=== PATIENT | female | born 1970 | race Caucasian/White ===

== ENCOUNTER → 2020-12-01 17:28 | Outpatient (CLI) | payer OTHER, SELFPAY ==
--- NOTE | ~2020-12-01 | MM_ITS ---
EXAMINATION: MM screening dada BI w terra HISTORY: Screening TECHNIQUE: Craniocaudal and mediolateral oblique 3-D tomosynthesis images were obtained and synthetic 2-D images were generated. CAD analysis was submitted and interpreted. COMPARISON: Comparison to multiple prior studies sequentially, with oldest reviewed study dated 09/2013. BREAST PARENCHYMAL COMPOSITION: The breasts are almost entirely fatty. FINDINGS: There is no evidence of suspicious mass, calcification, or architectural distortion to sugg est malignancy in either breast. There has been no suspicious interval change. IMPRESSION: 1. No mammographic evidence of malignancy. 2. Recommend routine screening mammography in one year. BI-RADS Category 1: Negative Reviewed, dictated and finalized at location A.
== END ==
PROVIDERS: PCP Family Medicine; Visit Provider Physician Assistant
DX: Z12.31 Encounter for screening mammogram for malignant neoplasm of breast (principal)
CPT/HCPCS: 77063; 77067

== ENCOUNTER → 2021-02-24 03:00 | Outpatient (CLI) | payer OTHER, SELFPAY ==
[2021-02-24 18:35] LABS: SARS-CoV-2 RNA PCR Positive
== END ==
PROVIDERS: PCP Family Medicine; Visit Provider Family Medicine
DX: U07.1 COVID-19 (principal)
CPT/HCPCS: C9803; U0003; U0005

== ENCOUNTER 2021-02-28 12:51 | Outpatient (RCR) | payer OTHER, SELFPAY ==
[2021-02-28] MEDS: FAMOTIDINE 20 MG TABLET PO (14:05)
[2021-02-28] MEDS: diphenhydrAMINE HCl CAP 25 MG CAPSULE PO (14:05)
[2021-02-28] MEDS: ACETAMINOPHEN 325 MG TABLET 650 MG PO (14:05)
[2021-02-28 14:22] VITALS: BP 130/64; PULSE 90; RESP 18; TEMP 37.2; O2SAT 98
--- NOTE | 2021-02-28 14:53 | PC.NURSE ---
Patient received COVID vaccines: [employer] 07/26/20, 08/17/20
[2021-02-28 15:46] VITALS: BP 122/59; PULSE 72; RESP 18; TEMP 37.1; O2SAT 99
--- NOTE | 2021-03-01 10:12 | PC.NURSE ---
Called patient to follow-up regarding COVID antibody infusion yesterday. Patient states they are feeling well today with the exception of some fatigue. Denies any side effects at this time.
== END 2021-02-28 16:24 | disposition home or self-care (01) ==
LOC: AMCINF 12:51
PROVIDERS: PCP Family Medicine; Referring Provider Family Medicine; Visit Provider Internal Medicine Hematology & Oncology
DX: Z23 Encounter for immunization (principal); U07.1 COVID-19
CPT/HCPCS: A9270; J7050; M0243; Q0244

== ENCOUNTER 2022-07-16 00:19 | Day surgery (SDC) | payer OTHER, SELFPAY ==
[2022-07-02 14:06] VITALS: BMI 43.7
[2022-07-16 07:57] VITALS: BP 116/54; PULSE 62; RESP 18; TEMP 36.2; O2SAT 100
[2022-07-16] MEDS: LACTATED RINGERS 1,000 ML 150 ML IV CONT (08:14)
--- NOTE | 2022-07-16 08:55 | P.PNAN_ITS ---
Anes - Initial Pre Proc Eval Procedure: Operation Date: 07/16/22 09:00 Proposed Procedures p Screening Colonoscopy - Slick Warren MD Date/Time: 07/16/22 08:55 Surgeon: Slick Warren MD Pre Op Diagnosis: neoplasm screening Patient Data Age: 51 Gender: F Height: 1.63 m Weight: 113.7 kg Last Vital Signs Temp 36.2 C L 07/16/22 07:57 Pulse 62 07/16/22 07:57 Resp 18 07/16/22 07:57 BP 116/54 L 07/16/22 07:57 Pulse Ox 100 07/16/22 07:57 O2 Del Method Room Air 07/16/22 07:57 Allergies Allergy/AdvReac Type Severity Reaction Status Date / Time No Known Allergies Allergy Mild Verified 07/16/22 07:56 Home Medications Medication Instructions Recorded Confirmed Type escitalopram oxalate 10 mg tablet 10 mg PO DAILY 02/28/21 07/02/22 History levothyroxine 50 mcg tablet 50 mcg PO DAILY 02/28/21 07/02/22 History propranolol 80 mg tablet 80 mg PO BID 02/28/21 07/02/22 History phentermine 37.5 mg capsule 37.5 mg PO DAILY #30 caps 06/20/22 07/02/22 Rx desogestrel 0.15 mg-ethinyl 0.15 tablet PO DAILY 07/02/22 07/02/22 History estradiol 0.03 mg tablet (Apri) Laboratory Tests 07/16/22 08:29 Beta HCG, Quant Pending Patient hx anesthesia problems: none Family hx anesthesia problems: none Results Review: All pre-operative results and documents have been reviewed as part of the pre- operative evaluation. [facility] Past Medical History Medical History (Updated 07/16/22 @ 08:57 by Dipesh Conrad MD) Hypothyroidism Morbid obesity with BMI of 40.0-44.9, adult ANA on CPAP Family History Family History (Updated 07/02/22 @ 14:30 by Ray Browning RN) Grandparent Colon cancer Social History Social History Smoking status: Never smoker Alcohol intake: current Drinks per week: 1 Substance use: never Substance use type: does not use Living arrangements: with family Spiritual care concerns: No Anes - Eval Final PreProcedure Day of Procedure 07/16/22 08:55 Patient weight: obese Heart: regular rate and rhythm Lungs: clear to auscultation and normal air movement Airway: Mallampati scale class II Neurological: alert and oriented Last oral intake: >/= 8 hours ASA classification: III Emergent: no Anesthetic plan: proceed Anesthesia type and monitoring: general GIVS Results Review: All pre-operative results and documents have been reviewed as part of the pre- operative evaluation. Informed Consent: The patient's anesthetic plan and its attendant risks and benefits were discussed with the patient/family/POA. Questions were solicited and answers provided to the satisfaction of the patient/family/POA.
[2022-07-16 09:01] LABS: Beta HCG Quantitative < 2.39 mIU/ML
--- NOTE | 2022-07-16 09:35 | PM.HPGS ---
History of Present Illness History of Present Illness Consent: Risks, benefits, and alternatives have been discussed and questions answered. Patient agrees to proceed with procedure. Chief complaint: neoplasm screening Narrative: Karen Hernandez is a 51 year old female here for first screening colonoscopy Review of Systems Constitutional: Constitutional: Denies headache(s) and Denies weakness Eyes: Eyes: Denies blurry vision ENT: Reports Normal hearing present, Denies headache(s) and Denies neck pain Cardiovascular: Cardiovascular: Denies chest pain and Denies dyspnea Respiratory: Respiratory: Denies dyspnea Gastrointestinal: Gastrointestinal: Reports no additional gastrointestinal complaints Genitourinary: Genitourinary: Denies dysuria Musculoskeletal: Musculoskeletal: Denies neck pain Integumentary/Breasts: Skin/Breast: Denies dry skin Neurologic: Reports Normal hearing present, Denies headache(s) and Denies weakness Psychiatric: Psychiatric: Denies anxiety Endocrine: Endocrine: Denies change in body appearance Hematologic/Lymphatic: Hematologic/Lymphatic: Denies easy bleeding Allergic/Immunologic: Allergic/Immunologic: Denies urticaria PMF Past Medical History Medical History (Updated 07/16/22 @ 09:35 by Slick Warren MD) Colon cancer screening Hypothyroidism Morbid obesity with BMI of 40.0-44.9, adult ANA on CPAP Family History Family History (Updated 07/02/22 @ 14:30 by Ray Browning RN) Grandparent Colon cancer Social History Social History Smoking status: Never smoker Alcohol intake: current Drinks per week: 1 Substance use: never Substance use type: does not use Living arrangements: with family Spiritual care concerns: No Meds Home Medications and Allergies Home Medications Medication Instructions Recorded Confirmed Type escitalopram oxalate 10 mg tablet 10 mg PO DAILY 02/28/21 07/02/22 History levothyroxine 50 mcg tablet 50 mcg PO DAILY 02/28/21 07/02/22 History propranolol 80 mg tablet 80 mg PO BID 02/28/21 07/02/22 History phentermine 37.5 mg capsule 37.5 mg PO DAILY #30 caps 06/20/22 07/02/22 Rx desogestrel 0.15 mg-ethinyl 0.15 tablet PO DAILY 07/02/22 07/02/22 History estradiol 0.03 mg tablet (Apri) Allergies Allergy/AdvReac Type Severity Reaction Status Date / Time No Known Allergies Allergy Mild Verified 07/16/22 07:56 Vital Signs Vital Signs - 24 hr 07/16/22 07:57 Temperature 97.1 F L Pulse Rate 62 Respiratory Rate 18 Blood Pressure 116/54 L Pulse Oximetry 100 Oxygen Delivery Room Air Exam Const: General: comfortable and no acute distress HENMT: Face/Nose/Sinus: Normal nares present Eyes: General: appearance normal, both eyes and all related structures Neck: Neck: no JVD Resp: Auscultation: clear to auscultation bilaterally Cardio: Rate: regular rate Rhythm: regular rhythm GI: Inspection: non-distended GI Palp: Yes Soft to palpation Skin: General skin exam: normal color Neuro: General: gait normal Speech: normal speech Extrem: General: normal to inspection Psych: Mental Status: mental status grossly normal Assessment and Plan Assessment and plan (1) Colon cancer screening: Code(s): Z12.11 - Encounter for screening for malignant neoplasm of colon Status: Acute Assessment and Plan: colonoscopy
[2022-07-16 09:56] VITALS: BP 91/56; PULSE 64; RESP 21; O2SAT 97
[2022-07-16 10:06] VITALS: BP 110/67; PULSE 65; RESP 16; O2SAT 98
[2022-07-16 10:16] VITALS: BP 115/61; PULSE 58; RESP 17; O2SAT 98
== END 2022-07-16 10:29 | disposition home or self-care (01) ==
PROVIDERS: Anesthesiology; PCP Family Medicine; Visit Provider Internal Medicine Gastroenterology
PROC: 0DJD8ZZ Inspection of Lower Intestinal Tract, Via Natural or Artificial Opening Endoscopic (ICD-10-PCS; CPT 45378; principal; 2022-07-16 09:00)
DX: Z12.11 Encounter for screening for malignant neoplasm of colon (principal); K57.30 Diverticulosis of large intestine without perforation or abscess without bleeding; K64.8 Other hemorrhoids; E03.9 Hypothyroidism, unspecified; G47.33 Obstructive sleep apnea (adult) (pediatric); E66.01 Morbid (severe) obesity due to excess calories; Z68.41 Body mass index [BMI] 40.0-44.9, adult
CPT/HCPCS: 45378; 36415; 84702; J2704; J7120

== ENCOUNTER → 2022-09-24 16:28 | Outpatient (CLI) | payer OTHER, SELFPAY ==
--- NOTE | ~2022-09-24 | MM_ITS ---
EXAMINATION: MM screening dada BI w terra HISTORY: Screening mammogram TECHNIQUE: Craniocaudal and mediolateral oblique 3-D tomosynthesis images were obtained and synthetic 2-D images were generated. CAD analysis was submitted and interpreted. COMPARISON: 12/01/2020 and 10/27/2018 BREAST PARENCHYMAL COMPOSITION:There are scattered areas of fibroglandular density. FINDINGS: No suspicious mass, calcification, or architectural distortion are identified in either светлана ast to suggest malignancy. There has been no suspicious interval change. IMPRESSION: No mammographic evidence of malignancy. Recommend routine screening mammography in one year. BI-RADS Category 1: Negative Reviewed, dictated and finalized at location .
== END ==
PROVIDERS: PCP Family Medicine; Visit Provider Physician Assistant
DX: Z12.31 Encounter for screening mammogram for malignant neoplasm of breast (principal)
CPT/HCPCS: 77063; 77067

== ENCOUNTER 2024-05-29 11:18 | Outpatient (CLI) | payer OTHER, SELFPAY ==
--- NOTE | ~2024-05-29 | MM_ITS ---
EXAMINATION: MM screening dada BI w terra HISTORY: Screening mammogram TECHNIQUE: Craniocaudal and mediolateral oblique 3-D tomosynthesis images were obtained and synthetic 2-D images were generated. CAD analysis was submitted and interpreted. COMPARISON: 09/24/2022, 12/01/2020, 10/27/2018 BREAST PARENCHYMAL COMPOSITION:Not Dense. The breasts are almost entirely fatty FINDINGS: No suspicious mass, calcification, or architectural distortion are identified in either св[place]а ast to suggest malignancy. There has been no suspicious interval change. IMPRESSION: No mammographic evidence of malignancy. Recommend routine screening mammography in one year. BI-RADS Category 1: Negative Reviewed, dictated and finalized at location . [employer]
== END 2024-05-29 11:19 | disposition home or self-care (01) ==
LOC: MICIMG 11:19
PROVIDERS: PCP Student in an Organized Health Care Education/Training Program; Visit Provider Student in an Organized Health Care Education/Training Program
DX: Z12.31 Encounter for screening mammogram for malignant neoplasm of breast (principal)
CPT/HCPCS: 77063; 77067